=== PATIENT | female | born 1960 | race Caucasian/White ===

== ENCOUNTER → 2021-05-03 12:11 | Outpatient (CLI) | payer OTHER, SELFPAY ==
--- NOTE | ~2021-05-03 | DEXA_ITS ---
Bone Density Report Name: Kerri Isbell Age: 61 Sex: Female Ethnicity: White Date of : 1960 Indication: postmenopausal; screening for osteoporosis; parental hip fracture; Referring Provider: TAWNY, RUTHIE Rust Study: Bone densitometry was performed. Exam Date: May 03, 2021 Accession number: [id number] Bone Density: Region BMD T-score Z-score Classification AP Spine (L1-L4) 1.063 0.1 1.6 Normal Femoral Neck (Left) 0.913 0.6 1.9 Normal Total Hip (Left) 1.097 1.3 2.2 Normal Femoral Neck (Right) 0.958 1.0 2.3 Normal Total Hip (Right) 1.124 1.5 2.5 Normal Total Hip Mean 1.111 1.4 2.4 Normal World Health Organization criteria for BMD impression classify patients as: Normal (T-score at or above -1.0), Osteopenia (T-score between -1.0 and -2.5), or Osteoporosis (T-score at or below -2.5). 10-year Fracture Risk: FRAX not reported because: All T-scores for Spine Total, Hip Total, Femoral Neck at or above -1.0 Previous Exams: Region Exam Age BMD T-score BMD Change BMD Change Date g/cm2 vs Baseline vs Previous AP Spine(L1-L4) 05/03/2021 61 1.063 0.1 0.012 0.012 02/02/2018 58 1.051 0.0 Total Hip(Left) 05/03/2021 61 1.097 1.3 -0.006 -0.006 02/02/2018 58 1.103 1.3 Total Hip(Right) 05/03/2021 61 1.124 1.5 -0.024 -0.024 02/02/2018 58 1.149 1.7 *Denotes significance at 95% confidence level, LSC for AP Spine = 0.022 g/cm2, LSC for Total Hip = 0.027 g/cm2 Clinical Information Provided by Patient: Parent has had a hip fracture Smokes Has used the following medications: Vitamin D, Calcium Patient maximum height was 65 Menopause Age: 53 Drinks caffeinated beverages Onset of menses at age 15 Number of children 2 Impression: The patient has normal bone mass. The patient has risk factors, including: parental hip fracture, smoking. No significant bone loss was observed. Discussion: BONE DENSITY IS ABOVE THE MINIMUM DESIRABLE LEVEL AT ALL SKELETAL SITES TESTED. This patient?s bone mineral density is above the minimum desirable level (T-score -1.0 or better) at all sites measured. The patient should follow a healthful lifestyle (good nutrition with adequate calcium and vitamin D, and appropriate weight-bearing exercise). Follow-Up: Consider repeating this study in 5 years or sooner if there is some new clinical indication. Reported by: SHIVA on 05/03/2021 12:30
--- NOTE | ~2021-05-03 | MM_ITS ---
EXAMINATION: MM screening chante BI w rogelio HISTORY: Screening mammogram TECHNIQUE: Craniocaudal and mediolateral oblique 3-D tomosynthesis images were obtained and synthetic 2-D images were generated. CAD analysis was submitted and interpreted. COMPARISON: 05/25/2019, 02/02/2018 bilateral screening mammogram examinations BREAST PARENCHYMAL COMPOSITION: There are scattered areas of fibroglandular density. FINDINGS: There is no evidence of suspicious mass, calcification, or architectural distortion to sugg est malignancy in either breast. There has been no suspicious interval change. IMPRESSION: 1. No mammographic evidence of malignancy. 2. Recommend routine screening mammography in one year. BI-RADS Category 1: Negative Reviewed, dictated and finalized at location A.
== END ==
PROVIDERS: PCP Internal Medicine; Visit Provider Internal Medicine
DX: Z12.31 Encounter for screening mammogram for malignant neoplasm of breast (principal); Z78.0 Asymptomatic menopausal state
CPT/HCPCS: 77063; 77067; 77080

== ENCOUNTER → 2023-02-06 13:12 | Outpatient (CLI) | payer OTHER, SELFPAY ==
--- NOTE | ~2023-02-06 | MM_ITS ---
EXAMINATION: MM screening chante BI w rogelio HISTORY: Screening mammogram TECHNIQUE: Craniocaudal and mediolateral oblique 3-D tomosynthesis images were obtained and synthetic 2-D images were generated. CAD analysis was submitted and interpreted. COMPARISON: 05/03/2021, 05/25/2019, 02/02/2018 bilateral screening mammogram examinations BREAST PARENCHYMAL COMPOSITION: There are scattered areas of fibroglandular density. FINDINGS: There is no evidence of suspicious mass, calcification, or architectural distortion to sugg est malignancy in either breast. There has been no suspicious interval change. IMPRESSION: 1. No mammographic evidence of malignancy. 2. Recommend routine screening mammography in one year. BI-RADS Category 1: Negative Reviewed, dictated and finalized at location A.
== END ==
PROVIDERS: PCP Internal Medicine; Visit Provider Nurse Practitioner
DX: Z12.31 Encounter for screening mammogram for malignant neoplasm of breast (principal)
CPT/HCPCS: 77063; 77067

== ENCOUNTER 2025-01-24 11:22 | Emergency (ER) | payer OTHER, SELFPAY ==
--- NOTE | ~2025-01-24 | XR_ITS ---
EXAM/ PROCEDURE: XR ankle LT min 3V, XR foot LT min 3V - 01/24/2025 11:45 CDT HISTORY: 65 years old Female with dorsal foot/ankle pain COMPARISON: None available TECHNIQUE: Three view(s) FINDINGS/ IMPRESSION: There are no fractures or dislocations.Joint space narrowing, subchondral sclerosis, subchondral cyst formation and osteophyte formation, compatible with mild osteoarthritis. Reviewed, dictated and finalized at location A.
--- NOTE | 2025-01-24 11:25 | ED.LOWEXIN ---
HPI - Extremity Injury (Lower) General Chief Complaint: Extremity Injury, Lower Stated Complaint: left ankle pain Time Seen by Provider: 01/24/25 11:23 Source: patient Mode of arrival: ambulatory Limitations: no limitations History of Present Illness HPI Narrative: Kerri is a 65-year-old female patient presenting to the clinic today with complaints of left ankle/foot pain x1 week. She reports pain got worse last night when she was getting into the bathtub and felt a pop. Is having pain to the dorsal foot ankle. Pain is worse with dorsal flexion and with walking/bearing weight. Has been taking Tylenol for pain wound which has brought her some relief. Rates pain 8/ currently. No known injury. Related Data Home Medications ?Medication ?Instructions ?Recorded ?Confirmed ?Last Taken ?Type amlodipine 5 mg tablet mg 01/24/25 Unknown History metoprolol succinate 50 mg mg PO 01/24/25 Unknown History tablet,extended release 24 hr naproxen 500 mg tablet mg 01/24/25 Unknown History rosuvastatin 20 mg tablet mg 01/24/25 Unknown History valsartan 320 tablet 01/24/25 Unknown History mg-hydrochlorothiazide 12.5 mg tablet venlafaxine 75 mg tablet mg 01/24/25 Unknown History Allergies Allergy/AdvReac Type Severity Reaction Status Date / Time No Known Allergies Allergy Unverified 01/24/25 11:40 Review of Systems Review of Systems: Pertinent positives per HPI. Patient denies any fever, chills, rash, headache, visual changes, dizziness, cough, runny nose, sore throat, shortness of breath, chest pain, palpitations, nausea, vomiting, diarrhea, constipation, abdominal pain, or any urinary issues. PMFSH Comments At the time of my signature, I reviewed and agree with the nursing past medical, surgical, social, and family history. There is no relevant family history pertinent to the patient complaint. Exam Narrative: General: Well-developed, well nourished, in no apparent distress Head: Normocephalic, atraumatic. Cardio: Regular rate and rhythm, s1 and s2 normal, no murmur appreciated. Resp: Clear to auscultation bilaterally, no rhonchi, rales, wheezing or rubs. Musculoskeletal: No deformity, no bruising or swelling, proximal dorsal foot and distal proximal ankle- tender to palpation, grossly normal range of motion, muscle strength strong and equal, peripheral pulse strong, no edema, no cyanosis, normal gait and station Course Course Emergency Course: Portions of this record may have been created with voice recognition software. Level of Care: Express Care Visit Vital Signs Vital signs: Vital Signs Temperature 36.2 C L 01/24/25 11:41 Pulse Rate 72 01/24/25 11:41 Respiratory Rate 18 01/24/25 11:41 Blood Pressure 147/83 H 01/24/25 11:41 Pulse Oximetry 96 01/24/25 11:41 Oxygen Delivery Room Air 01/24/25 11:41 Temperature 36.2 C L 01/24/25 11:41 Pulse Rate 72 01/24/25 11:41 Respiratory Rate 18 01/24/25 11:41 Blood Pressure 147/83 H 01/24/25 11:41 Pulse Oximetry 96 01/24/25 11:41 Oxygen Delivery Room Air 01/24/25 11:41 Vital signs reviewed MDM - Extremity Injury (Lower) MDM Narrative Medical decision making narrative: At the time of visit patient is resting comfortably on the exam table. Patient appears to be nontoxic. Complaints of left dorsal foot and ankle pain. Got worse last night when she was getting into the bathtub and felt a pop. Is having pain with movement of the ankle/foot. No acute injury. Rates pain 8/10 currently. Has taken Tylenol with some relief. Pain is worse with dorsal flexion with radiation up to the proximal tib-fib. X-ray of the left ankle and left foot was ordered. Diagnostics: X-ray of the left ankle and foot were performed and was negative for any sign of fracture or malalignment. Does show some mild osteoarthritis. Plan: I suspect patient has left foot/ankle tendinitis. Prescription for Medrol Dosepak was sent to the pharmacy. Work note was given. Supportive measures were discussed with the patient and they voiced understanding discharge instructions and agrees to treatment plan. Return precautions reviewed Differential Diagnosis Differential diagnosis: Likely ankle sprain and strain, fracture of toe, ankle fracture and other (Foot fracture, tendinitis, ankle sprain, foot sprain, soft tissue swelling) Imaging Data Radiologist's impression: [facility] [address] [place] [address] XRay Report Signed Patient: Kerri Isbell : 1960 MR#: [id number] Age: 65 Acct:[id number] Loc: [facility] ADM Date: 01/24/25Attending Dr: Ordering Physician: Brijesh Torres APRN Date of Service: 01/24/25 Procedure(s): XR ankle LT min 3V; XR foot LT min 3V Accession Number(s): [id number]; [id number] cc: Brijesh Torres APRN; Rianna, Fito Rust MD~ EXAM/ PROCEDURE: XR ankle LT min 3V, XR foot LT min 3V - 01/24/2025 11:45 CDT HISTORY: 65 years old Female with dorsal foot/ankle pain COMPARISON: None available TECHNIQUE: Three view(s) FINDINGS/ IMPRESSION: There are no fractures or dislocations.Joint space narrowing, subchondral sclerosis, subchondral cyst formation and osteophyte formation, compatible with mild osteoarthritis. Reviewed, dictated and finalized at location A. Please be advised this is a medical document. It is intended for [id number] communication. It is written in medical language and may contain unfamiliar abbreviations or verbiage. Medical documents are intended to carry relevant information, facts as evident, and the clinical opinion of the practitioner at the time of the encounter. This report may have been done utilizing a voice recognition system. Attempts have been made to correct errors. However, there may be uncorrected grammatical, spelling, and recognition errors present. The file time of this note does not necessarily represent the time of service. Dictated By: Sarai Bowman MD 01/24/25 1154 Signed By: <Electronically signed by Sarai Bowman MD in [place]> 01/24/[address] [address] XRay Report Signed Patient: Kerri Isbell : 1960 MR#: [id number] Age: 65 Acct:[id number] Loc: [facility] ADM Date: 01/24/25Attending Dr: Ordering Physician: Brijesh Torres APRN Date of Service: 01/24/25 Procedure(s): XR ankle LT min 3V; XR foot LT min 3V Accession Number(s): [id number]; [id number] cc: Brijesh Torres APRN; Rianna, Fito Rust MD~ EXAM/ PROCEDURE: XR ankle LT min 3V, XR foot LT min 3V - 01/24/2025 11:45 CDT HISTORY: 65 years old Female with dorsal foot/ankle pain COMPARISON: None available TECHNIQUE: Three view(s) FINDINGS/ IMPRESSION: There are no fractures or dislocations.Joint space narrowing, subchondral sclerosis, subchondral cyst formation and osteophyte formation, compatible with mild osteoarthritis. Reviewed, dictated and finalized at location A. Please be advised this is a medical document. It is intended for [id number] communication. It is written in medical language and may contain unfamiliar abbreviations or verbiage. Medical documents are intended to carry relevant information, facts as evident, and the clinical opinion of the practitioner at the time of the encounter. This report may have been done utilizing a voice recognition system. Attempts have been made to correct errors. However, there may be uncorrected grammatical, spelling, and recognition errors present. The file time of this note does not necessarily represent the time of service. Dictated By: Sarai Bowman MD 01/24/25 1154 Signed By: <Electronically signed by Sarai Bowman MD in [place]> 01/24/25 1202 Discharge Plan Discharge Clinical Impression: Tendinitis of ankle or foot Patient Disposition: Home Condition: Stable Instructions: Antibiotic Form, Tendinitis (ED) Additional Instructions: X-ray of the left ankle and foot are negative for any sign of fracture or malalignment. Does show mild osteoarthritis Rest, ice, elevate, and wear shaquille wrap as directed Tylenol/motrin for pain as discussed. Take medrol dose pack as prescribed Gradually bear weight No running or sports until healed. Follow up with your PCP if symptoms persist more than 1 week. Patient Language: Tamazight Prescriptions: New methylprednisolone [Medrol (Jorge A)] 4 mg tablets,dose pack See Rx Instructions PO .COMPLEX Qty: 21 0RF Rx Instructions: orally per package directions No Action venlafaxine 75 mg tablet metoprolol succinate 50 mg tablet extended release 24 hr PO amlodipine 5 mg tablet naproxen 500 mg tablet rosuvastatin 20 mg tablet valsartan-hydrochlorothiazide 320-12.5 mg tablet Follow-up/Referrals: Rianna,Fito Rust MD [Primary Care Provider] - Stand Alone Forms: Work/School Release IP Time of Disposition: 12:06 Quality NIHSS Nursing Documentation ED NIHSS nursing documentation: reviewed/agree
[2025-01-24 11:41] VITALS: BP 147/83; PULSE 72; RESP 18; TEMP 36.2; O2SAT 96
== END 2025-01-24 12:15 | disposition home or self-care (01) ==
PROVIDERS: Emergency Provider Nurse Practitioner Family; PCP Internal Medicine
DX: M67.874 Other specified disorders of tendon, left ankle and foot (principal); I10 Essential (primary) hypertension; E78.00 Pure hypercholesterolemia, unspecified; M19.90 Unspecified osteoarthritis, unspecified site; F41.9 Anxiety disorder, unspecified
CPT/HCPCS: 73610; 73630; 99203; G0463